=== PATIENT | male | born 1995 | race Caucasian/White ===

== ENCOUNTER 2019-04-29 16:04 | Emergency (ER) | payer BC ==
--- NOTE | 2019-04-29 17:13 | UC ---
Skin Complaint HPI - HPI Summary HPI Summary: 24-year-old male with ringworm on his right abdomen. Family has a kitten that has had ringworm. - History of Current Complaint Time Seen by Provider: 04/29/19 16:58 Stated Complaint: RASH,SKIN COMPLAINT Hx Obtained From: Patient Onset/Duration: Gradual Onset, Lasting Days Skin Exposure Onset/Duration: Days Ago Timing: Constant Onset Severity: Mild Current Severity: Mild Location: Other - Right side of abdomen Character: Redness Aggravating Factor(s): Nothing Alleviating Factor(s): Nothing Associated Signs & Symptoms: Positive: Negative Related History: Possible Reaction to: Animal - Allergy/Home Medications Allergies/Adverse Reactions: Allergies Allergy/AdvReac Type Severity Reaction Status Date / Time No Known Allergies Allergy Verified 04/29/19 17:16 Home Medications: Home Medications NK [No Home Medications Reported] 04/29/19 [History Confirmed 04/29/19] PMH/Surg Hx/FS Hx/Imm Hx Previously Healthy: Yes - Family History Known Family History: Positive: Non-Contributory - Social History Lives: With Family Review of Systems All Other Systems Reviewed And Are Negative: Yes Skin: Positive: Rash Is Patient Immunocompromised?: No Physical Exam Triage Information Reviewed: Yes Appearance: Well-Appearing, No Pain Distress, Well-Nourished Vital Signs Reviewed: Yes Skin: Positive: Rashes - The patient has a definite ringworm circular rash to his right abdomen measuring approximately 1.0 cm in diameter. Course/Dx - Course Course Of Treatment: The patient is comfortable here and in no distress. He only has one area of ringworm. - Diagnoses Provider Diagnosis: Ringworm Discharge ED - Sign-Out/Discharge Documenting (check all that apply): Patient Departure All imaging exams completed and their final reports reviewed: No Studies - Discharge Plan Condition: Good Disposition: HOME Patient Education Materials: Tinea Corporis (ED) Referrals: Samantha Hernandez MD [Primary Care Provider] - Additional Instructions: Apply Lotrimin ointment 3 times a day to the area until cleared and then one week afterwards cleared area and follow-up with your primary care provider if no improvement in 5-7 days. Avoid skin to skin contact. - Billing Disposition and Condition Condition: GOOD Disposition: Home
[2019-04-29 17:18] VITALS: BP 118/74
== END 2019-04-29 17:29 | disposition home or self-care (01) ==
LOC: UCCORT 16:04
DX: B35.9 Dermatophytosis, unspecified (principal)
CPT/HCPCS: 99201; G0463